=== PATIENT | male | born 1990 | race Caucasian/White ===

== ENCOUNTER → 2024-11-22 09:02 | Outpatient (REF) | payer OTHER, SELFPAY ==
[2024-11-22 14:01] LABS: Mumps Virus IgG Positive; Varicella Zoster IgG (VZV) Positive
[2024-11-22 15:45] LABS: Rubeola (Measles) IgG Positive
[2024-11-22 19:35] LABS: Rubella Negative
[2024-11-24 16:21] LABS: Quantiferon Mitogen minus NIL 9.95 IU/mL; Quantiferon NIL 0.05 IU/mL; Quantiferon Plus TB2 minus NIL 0.01 IU/mL (<=0.34); Quantiferon TB Gold Plus Negative (Negative)
== END ==
LOC: OHS 09:02
PROVIDERS: ATTENDING PHYSICIAN Nurse Practitioner Family
DX: Z23 Encounter for immunization (principal)
CPT/HCPCS: 36415; 86480; 86735; 86762; 86765; 86787

== ENCOUNTER 2024-12-31 09:05 | Emergency (ER) | payer SELFPAY ==
[2024-12-31] VITALS (8 sets, daily range): BP systolic 108–132; BP diastolic 75–96; PULSE 84–100; BMI 29.6
[2024-12-31 09:08] LABS: Glucose - Point of Care 116 mg/dl (70-99)
--- NOTE | 2024-12-31 09:39 | ED.GENMED ---
History of Present Illness
General
Chief Complaint: Dizziness
Time Seen by Provider: 12/31/24 09:23
History of Present Illness
History of Present Illness:
Patient is a 34-year-old male with past medical history of hypothyroidism and reported hydrocephalus (diagnosed as a child, not currently following with neurology), currently an employee at [employer], here today for evaluation of a
headache associated with dizziness and a near syncopal episode that occurred just prior to arrival. Patient states he woke up this morning with a mild headache described as a 3 out of 10 in severity. He noted no additional symptoms at that time.
While working approximately 1/2-hour prior to arrival he developed onset of dizziness/lightheadedness and felt the room was spinning and like he was going to pass out. He felt like he was going to fall onto the ground however he was able to catch
himself. He denies actually passing out or striking his head. No chest pain or difficulty breathing. No blurry vision. No numbness or tingling. No focal weakness. Rapid response was called and patient was ultimately transported to the
emergency department. Patient still endorses a mild headache described as a 3 out of 10 in severity. He still endorses mild dizziness. He does report feeling occasional shortness of breath intermittently over the past 1 week but denies feeling
this way currently. Shortness of breath lasted for several seconds and then resolves. He is currently not short of breath. No chest pain noted. He has previously felt dizzy but not this severe. He denies eating or drinking anything prior to
symptom onset this morning. He has noted a slight cough. No other acute complaints.
Review of Systems
Review of Systems
All Other Systems: ROS reviewed and negative except as documented in HPI and ROS
Phy Exam
Physical Exam
Physical Exam:
GENERAL: Alert , in no apparent distress
EYE: pupils equal and reactive
NECK: Supple
ENT: o/p clr, mmm.
CARDIAC: Regular rate and rhythm .
LUNGS: Clear breath sounds bilaterally, no acute respiratory distress, no wheezes/rales/rhonchi
ABDOMEN: Soft, without focal tenderness, no r/g, no cvat
NEUROLOGICAL: Alert and oriented, no focal neuro deficits, cranial nerves II through XII intact, normal sensation and motor, moving all extremities
SKIN: Warm and dry, skin intact.
MUSCULOSKELETAL: No edema, well perfused.
PSYCH: Normal and appropriate interaction.
Course
Orders/Labs/Results
Orders:
Orders
12/31/24 09:10
Electrocardiogram (*1) Urgent
Reason for Study: Chest Pain
EKG- Treatment ONCE
12/31/24 09:43
Electrocardiogram (*1) Urgent
Reason for Study: Vertigo / Dizzy
Cardiac Monitoring- Treatment ONCE
EKG- Treatment ONCE
Orthostatic VS- Treatment ONCE
12/31/24 09:44
CT Head & Neck Angio W/wo IV Urgent
Comment:
Reason For Exam: dizziness, headache
CR Chest - 2 Views Urgent
Comment:
Reason For Exam: lightheadedness
12/31/24 10:19
Complete Blood Count/With Diff Urgent
Comprehensive Metabolic Panel Urgent
Magnesium Urgent
Phosphorus Urgent
Troponin I Urgent
12/31/24 11:09
Urinalysis Reflex To Culture Urgent
Date Specimen was Collected: 12/31/24
Time Specimen was Collected: 11:08
Urine Microscopic Reflex Cult Urgent
Abnormal Lab Results
12/31/24 12/31/24 12/31/24
09:07 10:19 11:09
MCH 32.0 H pg
(27.0-31.0)
Abs Immat Gran (auto) 0.1 H 10^3/uL
(0-0.05)
Immature Gran % 0.8 H %
(0-0.5)
Glucose 108 H mg/dl
(70-99)
Urine Albumin (Reflex) 2+ A
(Neg - Trace)
POC Glucose 116 H mg/dl
(70-99)
12/31/24 10:19
12/31/24 10:19
Vital Signs
Initial and Last Documented VS:
Initial Vital Signs
Temp Pulse Resp BP Pulse Ox
98.1 F 95 20 130/96 96
12/31/24 09:07 12/31/24 09:07 12/31/24 09:07 12/31/24 09:07 12/31/24 09:07
Last Documented Vital Signs
Temp Pulse Resp BP Pulse Ox
98.1 F 76 11 130/92 97
12/31/24 09:07 12/31/24 13:00 12/31/24 13:00 12/31/24 13:00 12/31/24 13:00
MDM/Problems Addressed
Differential Diagnosis Includes:
Patient is a 34-year-old male with past medical history of hypothyroidism and reported hydrocephalus (diagnosed as a child, not currently following with neurology), currently an employee at [employer], here today for evaluation of a
headache associated with dizziness and a near syncopal episode that occurred just prior to arrival. Overall, patient appears very well. He is mildly hypertensive here. Physical examination described above. [id number] glucose normal. The
patient is neurologically intact without acute focal deficit appreciated. Will obtain a cardiac workup and further testing.
12/31/2024 13:21: Screening labs grossly within normal limits. Urinalysis negative for infection. There is a small amount of albumin which may be secondary to dehydration. CTA head/neck unchanged from prior. Chest x-ray/EKG negative. Patient
made aware. He feels improvement of symptoms overall. Orthostatic vital signs negative. We will perform a p.o. challenge and have the patient ambulate and reassess.
12/31/2024 13:45: P.o. challenge successful. Patient able to tolerate p.o. appropriately. A trial of ambulation was performed around the emergency department which was successful. Patient feels steady on his feet and at his baseline. He is
currently asymptomatic. Given patient's resolving symptoms and reassuring examination we will discharge at this time with recommendations to closely follow-up with his primary care provider. The patient is requesting a cough medication to help
with the cough. Will provide benzonatate. Return precautions given. Patient voices understanding. All questions answered. Stable for discharge.
*Pulse Oximetry
SaO2: 96
Oxygen Mode of Delivery: Room air
Patient hypoxic: no
*Critical Care Note
Total Time (30-74mins, 75-104mins- exclusive of procedures): Not Applicable
ED Attending Note
-
Portions of this chart may have been created with voice recognition software.� Occasional wrong word or��sound alike� substitutions may have occurred due to the inherent limitations of voice recognition software.
Discharge Plan
Departure
Patient Disposition: Home (Routine Discharge)
Date of Disposition: 12/31/24
Time of Disposition: 13:46
Patient with high blood pressure during this ER visit?: Yes
Condition: Good
Discharge Problem:
Dizziness
Prescriptions:
New
benzonatate 200 mg capsule
200 mg PO TID PRN (Reason: Cough) 5 Days Qty: 15 0RF
Referrals:
Khoa Barbour MD [Active, Neurology] - Follow up in 1 week
NONE,* [Family Provider, Internal Medicine]
Activity Restrictions/Additional Instructions:
Your workup today is largely unremarkable/consistent with your baseline.
We discussed following up with neurology for the abnormal CAT scan findings.
1. Dilation of the lateral and third ventricles, unchanged compared to prior CT dated 11/02/2022. 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
2. Mild cerebellar atrophy, unchanged compared to prior study.
We also recommend following up with your primary care provider for reevaluation within the next 5 to 7 days.
Return for any new, worsening, or concerning symptoms.
Interventions
Interventions:
*Risk Screen - Suicide Last Done: 12/31/24 09:07
*General Assessment Last Done: 12/31/24 10:14
*Neglect/Abuse Screening Last Done: 12/31/24 10:15
*ED- Fall Risk Assessment Last Done: 12/31/24 10:14
*ED COVID-19 Vaccine History Last Done: 12/31/24 10:14
ED- Neurological Assessment Last Done: 12/31/24 10:20
ED- Cardiac Assessment Last Done: 12/31/24 10:20
ED Swallowing Screen Last Done: 12/31/24 11:16
Discharge Date and Time
Print Language: HEBREW
[2024-12-31 10:35] LABS: Hematocrit 43.8 % (39.0-52.0); Hemoglobin 15.9 g/dL (13.0-18.0); Mean Corp Hgb Conc. 36.3 g/dL (33.0-37.0); Mean Corpuscular Volume 88.1 fL (80.0-94.0); Nucleated Red Blood Cells % 0 % (-); Platelet Count 203 10^3/uL (130-400); Red Cell Dist. Width 12.5 % (11.5-14.5)
--- NOTE | 2024-12-31 10:52 | EDRN ---
Pt snoring and sleeping at this time. Lights down, no complaints. VSS. Pain is now a 2/10 for his head and dizziness is only slight now.
[2024-12-31 10:59] LABS: ALT (SGPT) 24 U/L (0-50); AST (SGOT) 23 U/L (17-59); Albumin 4.2 g/dl (3.5-5.0); Alkaline Phosphatase 55 U/L (38-126); Blood Urea Nitrogen 12 mg/dl (9-20); Calcium 9.1 mg/dl (8.4-10.2); Carbon Dioxide 25 mmol/L (22-30); Chloride 105 mmol/L (98-107); Glucose 108 mg/dl (70-99); Magnesium 2.2 mg/dl (1.6-2.3); Potassium 4.3 mmol/L (3.5-5.1); Sodium 137 mmol/L (135-145); Total Protein 7.0 g/dl (6.3-8.2); eGFR > 60.00
--- NOTE | 2024-12-31 11:01 | EDRN ---
Pt attempting urine in BR at this time.
[2024-12-31 11:11] LABS: Troponin I < 0.012 ng/ml
[2024-12-31 11:43] LABS: Urine Character Clear (Clear)
[2024-12-31 12:20] LABS: Urine Squamous Cell 0-2 /LPF (Few)
[2024-12-31 12:21] LABS: Urine Urothelial Cell 0-2 /LPF (FEW)
[2024-12-31 12:22] LABS: Urine Red Blood Cell 0-2 /HPF (0-2); Urine White Cell 0-2 /HPF (0-5)
--- NOTE | 2024-12-31 13:45 | EDRN ---
Zaira Willard PA in to see ptSusan
== END 2024-12-31 14:19 | disposition home or self-care (01) ==
LOC: EMR 09:05
PROVIDERS: Physician Assistant; EMERGENCY PHYSICIAN Emergency Medicine
DX: R42 Dizziness and giddiness (principal); R03.0 Elevated blood-pressure reading, without diagnosis of hypertension; E03.9 Hypothyroidism, unspecified
CPT/HCPCS: 99285; 70496; 70498; 71046; 80053; 81003; 81015; 82962; 83735; 84100; 84484; 85025; 93005; Q9967

== ENCOUNTER 2025-01-06 13:36 | Emergency (ER) | payer BC, SELFPAY ==
[2025-01-06 13:48] VITALS: BP 123/92
[2025-01-06 14:08] LABS: Hematocrit 46.1 % (39.0-52.0); Hemoglobin 16.9 g/dL (13.0-18.0); Mean Corp Hgb Conc. 36.7 g/dL (33.0-37.0); Mean Corpuscular Volume 87.8 fL (80.0-94.0); Nucleated Red Blood Cells % 0 % (-); Platelet Count 247 10^3/uL (130-400); Red Cell Dist. Width 12.5 % (11.5-14.5)
[2025-01-06 14:25] LABS: Blood Urea Nitrogen 18 mg/dl (9-20); Calcium 8.9 mg/dl (8.4-10.2); Carbon Dioxide 27 mmol/L (22-30); Chloride 101 mmol/L (98-107); Glucose 98 mg/dl (70-99); Sodium 137 mmol/L (135-145); eGFR > 60.00
--- NOTE | 2025-01-06 14:42 | ED.GENMED ---
History of Present Illness
General
Chief Complaint: Dizziness
Source: patient
Time Seen by Provider: 01/06/25 14:24
History of Present Illness
History of Present Illness:
This patient is a 34-year-old male who states that he was at work today, standing, and he turned his head and started to feel dizzy. He raises his index finger in the ear and moves around in a circular pattern to describe what the dizziness felt
like, also noted as 'spinning'. He thought he was going to fall and needed to brace himself. He denies syncope, injury, or falling down. He now states that he still feels a little dizzy with a mild headache. Patient had the very similar episode
on Friday, was seen in the emergency department had extensive workup including CTA, chest x-ray, labs, etc. This was all reviewed by me. Patient does report occasional recent nonproductive cough. He denies tinnitus, diplopia, dysarthria chest
pain, shortness of breath, neck pain, numbness, tingling, focal weakness, recent URI, fevers, chills, recent trauma, or other complaints.
Past History
Past History
ED Past Medical History: Hypothyroidism and Other (Hydrocephalus)
Social History
Tobacco: Non-smoker
Alcohol: None
Drug: None
Personal: Single
Living: with family
Employment: Employed
Phy Exam
Physical Exam
Physical Exam:
GENERAL: Alert , in no apparent distress
EYE: pupils equal and reactive, EOMI, no nystagmus, no photophobia
NECK: Supple, no significant adenopathy.
ENT: o/p clr, mmm. There is a mild to moderate amount of cerumen in the bilateral external auditory canals
CARDIAC: Regular rate and rhythm .
LUNGS: Clear breath sounds bilaterally, no acute respiratory distress, no wheezes/rales/rhonchi
ABDOMEN: Soft, without focal tenderness, no r/g, no cvat
NEUROLOGICAL: Alert and oriented, no focal neuro deficits, normal gait, [id number] normal, motor 5 out of 5, sensory intact, cranial nerves II through XII intact
SKIN: Warm and dry, skin intact.
MUSCULOSKELETAL: No edema, well perfused.
PSYCH: Normal and appropriate interaction.
Course
Orders/Labs/Results
Orders:
Orders
01/06/25 13:38
Electrocardiogram (*1) Urgent
Reason for Study: Syncope
01/06/25 13:39
EKG- Treatment ONCE
01/06/25 14:02
Basic Metabolic Panel Urgent
Complete Blood Count/With Diff Urgent
Abnormal Lab Results
01/06/25
14:02
MCH 32.2 H pg
(27.0-31.0)
Absolute Monos (auto) 0.7 H 10^3/uL
(0.1-0.6)
01/06/25 14:02
01/06/25 14:02
Vital Signs
Initial and Last Documented VS:
Initial Vital Signs
Temp Pulse Resp BP Pulse Ox
98 F 107 16 123/92 98
01/06/25 13:48 01/06/25 13:48 01/06/25 13:48 01/06/25 13:48 01/06/25 13:48
Last Documented Vital Signs
Temp Pulse Resp BP Pulse Ox
98 F 107 16 123/92 98
01/06/25 13:48 01/06/25 13:48 01/06/25 13:48 01/06/25 13:48 01/06/25 14:50
*Pulse Oximetry
SaO2: 98
Oxygen Mode of Delivery: Room air
Update Note
Update Note:
Patient presents to the Emergency Department with ____dizziness
Number and Complexity of Problems Addressed at the Encounter
� Chronic conditions affecting care:
� Acute Exacerbation and/or Progression of Chronic Illness:
� Differential Diagnosis includes: But not limited to BPPV, vertigo related to cerumen impaction, TIA, arrhythmia, etc. etc.
Amount and/or Complexity of Data to be Reviewed and Analyzed
� I performed an independent evaluation of and my interpretation is:
EKG: Read by me, normal sinus rhythm, normal rate, normal axis, no acute ischemia
CT:
Xrays:
Laboratory Studies: Generally unremarkable
Other:
� Review of other/old records reveals:
� Clinical information was obtained by an independent historian:
� Prescriptions/Medications Considered but not given:
� Further testing considered but not performed:
Risk of Complications and/or Morbidity or Mortality of Patient Management
� Social determinants of health affecting care:
� Discussion with other providers (PCP, Hospitalists, Consultants, etc):
� Escalation of care including admission/observation vs risk of discharge considered:Review of CT from 2022 notes mild to moderate hydrocephalus with recommendation for neurology consult. In reading patient's records, he was
referred to neurosurgery as an outpatient. The CAT scan from just a few days ago is unchanged. I highly doubt that this finding is related to patient's symptoms today. Patient is neurologically intact here. I suspect his symptoms are most
consistent with vertigo particularly as he describes it as a spinning sensation. Will prescribe Antivert, Debrox drops for his cerumen, and recommend close follow-up.
ED Attending Note
-
Portions of this chart may have been created with voice recognition software.� Occasional wrong word or��sound alike� substitutions may have occurred due to the inherent limitations of voice recognition software.
Discharge Plan
Departure
Patient Disposition: Home (Routine Discharge)
Date of Disposition: 01/06/25
Time of Disposition: 14:55
Patient with high blood pressure during this ER visit?: Yes
Condition: Good
Discharge Problem:
Vertigo
Instructions: Vertigo (a Type of Dizziness) (DC), BLOOD PRESSURE
Prescriptions:
New
meclizine 25 mg tablet
25 mg PO BID PRN (Reason: dizziness) Qty: 13 0RF
Debrox 6.5 % drops
5 drp otic (ear) DAILY 4 Days Qty: 15 0RF
No Action
benzonatate 200 mg capsule
200 mg PO TID PRN (Reason: Cough) 5 Days Qty: 15 0RF
Referrals:
Cuauhtemoc Stoll DO, Resident [Family Provider, General] - Follow up in 2-3 days
Activity Restrictions/Additional Instructions:
IF YOU DEVELOP NUMBNESS, TINGLING, DOUBLE VISION, SEVERE HEADACHE, SEVERE NECK PAIN, FEVER, WEAKNESS, DIFFICULTY WALKING, INCREASING OR NEW DIZZINESS, CHEST PAIN, PALPITATIONS, OR OTHER WORRISOME SIGNS, PLEASE RETURN TO THE ER IMMEDIATELY!
Interventions
Interventions:
*Risk Screen - Suicide Last Done: 01/06/25 13:48
*Neglect/Abuse Screening Last Done: 01/06/25 13:48
Discharge Date and Time
Print Language: DANISH
== END 2025-01-06 15:38 | disposition home or self-care (01) ==
LOC: EMR 13:36
PROVIDERS: EMERGENCY PHYSICIAN Emergency Medicine
DX: R42 Dizziness and giddiness (principal); E03.9 Hypothyroidism, unspecified; G91.9 Hydrocephalus, unspecified
CPT/HCPCS: 99283; 80048; 85025; 93005

== ENCOUNTER 2025-01-19 08:43 | Emergency (ER) | payer BC, SELFPAY ==
[2025-01-19] VITALS (11 sets, daily range): BP systolic 98–153; BP diastolic 84–118; BMI 29.1
--- NOTE | 2025-01-19 08:56 | ED.GENMED ---
History of Present Illness
<ESPERANZA Singh - Last Filed: 01/19/25 17:35>
General
Chief Complaint: Fainting/Passed Out
Source: patient
Exam Limitations: none
Time Seen by Provider: 01/19/25 08:49
Nursing documentation reviewed up to this point in time: agreed with
History of Present Illness
History of Present Illness:
Patient is a 34-year-old male who has a past medical history of hydrocephalus presents to the ER for evaluation.
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 rapid response was called. Patient presented to room 33 awake and alert. He
feels slightly anxious now but denies any other symptoms. He denies any dizziness presently. He was seen here in the ER January 06 for dizziness and was diagnosed with vertigo.
Patient does report for the past several weeks every time he drinks or eats he intermittently coughs.
Pt has been seen here 12/31 and 01/06 for dizziness. Patient had head and neck CTA which does report unchanged dilatation of the lateral and third ventricles(comparison from October 2022).
Patient does reports thathe has had hydrocephalus ' my whole life.' He did see neurology at [facility] couple years ago they were planning on doing a shunt and then decided not to.
Past History
<ESPERANZA Singh - Last Filed: 01/19/25 17:35>
Past History
ED Past Medical History: Hypothyroidism and Other (Hydrocephalus)
Social History
Tobacco: Non-smoker
Alcohol: None
Drug: None
Personal: Single
Living: with family
Employment: Employed
Phy Exam
<ESPERANZA Singh - Last Filed: 01/19/25 17:35>
General Physical Exam
General Presentation: no apparent distress
General age: appears stated age
General Skin: warm and dry
General Habitus: normal
General Mental: alert
General Hydration: appears well hydrated
ENT Exam
ENT Exam: EOMI, TM's normal and neck supple
Eye Exam
Eye Exam: PERRL, EOMI and other (No papilledema)
Eye Exam General: PERRL: bilateral and EOM intact: bilateral
Pupil Exam: Bilateral: round and reactive
Cardiovascular Exam
Cardiovascular Exam: tachycardia
Pulmonary Exam
Pulmonary Exam: lungs clear and no respiratory distress
Neurological Exam
Neurological Exam: alert, oriented x3, no motor deficits and no sensory deficits
Summit Coma Scale
Eye Opening: Spontaneous
Verbal Response: Oriented
Motor Response: Obeys Commands
GCS Total Score: 15
Cerebellar
Cerebellar Function: normal finger to nose
Musculoskeletal Exam
Musculoskeletal Exam: full ROM
Skin Exam
Skin Exam: normal color and warm/dry
Psychiatric Exam
Psychiatric Exam: normal mood/affect
<Tiffany Rivers PA-C - Last Filed: 01/19/25 23:33>
Summit Coma Scale
GCS Total Score: 15
Course
<ESPERANZA Singh - Last Filed: 01/19/25 17:35>
Orders/Labs/Results
Orders:
Orders
01/19/25 08:47
Electrocardiogram (*1) Urgent
Reason for Study: Syncope
01/19/25 08:48
EKG- Treatment ONCE
01/19/25 09:10
IV Insert/Care/Rem.- Treatment PRN
01/19/25 09:11
Cardiac Monitoring- Treatment ONCE
0.9% Sodium Chloride 1000 ml [Nss] 1,000 ml IV BOLUS
Speech Therapy Eval & Treat Urgent
01/19/25 09:14
CBC/No Diff [Complete Blood Count/No Diff] Urgent
Comprehensive Metabolic Panel Urgent
TSH Urgent
01/19/25 Lunch
NPO
Reason for opting out of Tactical Debriefer Officer order writing: Provider Decision
Allow oral meds: No
Allow clear liquids: No
01/19/25 10:33
DDimer [D-Dimer] Urgent
01/19/25 12:55
CT Head W/o Iv Contrast Urgent
Comment:
Reason For Exam: dizziness hx of hydrocephalus
01/19/25 16:48
MRI Brain [MR Brain Without Contrast] Urgent
Comment:
Reason For Exam: dizziness diff swallowing hx of chronic hydrocepha
OK for patient to be off Cardiac Monitoring for MRI: Yes
Recent pill cam endoscopy?: No
01/19/25 17:34
Lorazepam [Ativan] 1 mg IV Q4HPRN PRN
Abnormal Lab Results
01/19/25 01/19/25
08:56 09:14
WBC 12.1 H 10^3/uL
(4.8-10.8)
MCH 31.7 H pg
(27.0-31.0)
Glucose 107 H mg/dl
(70-99)
Total Bilirubin 1.6 H mg/dl
(0.2-1.3)
POC Glucose 121 H mg/dl
(70-99)
01/19/25 09:14
01/19/25 09:14
Vital Signs
Initial and Last Documented VS:
Initial Vital Signs
Pulse Resp Pulse Ox
117 14 97
01/19/25 08:46 01/19/25 08:46 01/19/25 08:46
Last Documented Vital Signs
Temp Pulse Resp BP Pulse Ox
98.1 F 98 18 123/85 100
01/19/25 08:48 01/19/25 21:08 01/19/25 21:08 01/19/25 21:03 01/19/25 21:08
<Jamie Dotson, DO - Last Filed: 01/19/25 14:46>
Orders/Labs/Results
Orders:
Orders
01/19/25 08:47
Electrocardiogram (*1) Urgent
Reason for Study: Syncope
01/19/25 08:48
EKG- Treatment ONCE
01/19/25 09:10
IV Insert/Care/Rem.- Treatment PRN
01/19/25 09:11
Cardiac Monitoring- Treatment ONCE
0.9% Sodium Chloride 1000 ml [Nss] 1,000 ml IV BOLUS
Speech Therapy Eval & Treat Urgent
01/19/25 09:14
CBC/No Diff [Complete Blood Count/No Diff] Urgent
Comprehensive Metabolic Panel Urgent
TSH Urgent
01/19/25 Lunch
NPO
Reason for opting out of Tactical Debriefer Officer order writing: Provider Decision
Allow oral meds: No
Allow clear liquids: No
01/19/25 10:33
DDimer [D-Dimer] Urgent
01/19/25 12:55
CT Head W/o Iv Contrast Urgent
Comment:
Reason For Exam: dizziness hx of hydrocephalus
01/19/25 16:48
MRI Brain [MR Brain Without Contrast] Urgent
Comment:
Reason For Exam: dizziness diff swallowing hx of chronic hydrocepha
OK for patient to be off Cardiac Monitoring for MRI: Yes
Recent pill cam endoscopy?: No
01/19/25 17:34
Lorazepam [Ativan] 1 mg IV Q4HPRN PRN
Abnormal Lab Results
01/19/25 01/19/25
08:56 09:14
WBC 12.1 H 10^3/uL
(4.8-10.8)
MCH 31.7 H pg
(27.0-31.0)
Glucose 107 H mg/dl
(70-99)
Total Bilirubin 1.6 H mg/dl
(0.2-1.3)
POC Glucose 121 H mg/dl
(70-99)
01/19/25 09:14
01/19/25 09:14
Vital Signs
Initial and Last Documented VS:
Initial Vital Signs
Pulse Resp Pulse Ox
117 14 97
01/19/25 08:46 01/19/25 08:46 01/19/25 08:46
Last Documented Vital Signs
Temp Pulse Resp BP Pulse Ox
98.1 F 98 18 123/85 100
01/19/25 08:48 01/19/25 21:08 01/19/25 21:08 01/19/25 21:03 01/19/25 21:08
<Tiffany Rivers PA-C - Last Filed: 01/19/25 23:33>
Orders/Labs/Results
Orders:
Orders
01/19/25 08:47
Electrocardiogram (*1) Urgent
Reason for Study: Syncope
01/19/25 08:48
EKG- Treatment ONCE
01/19/25 09:10
IV Insert/Care/Rem.- Treatment PRN
01/19/25 09:11
Cardiac Monitoring- Treatment ONCE
0.9% Sodium Chloride 1000 ml [Nss] 1,000 ml IV BOLUS
Speech Therapy Eval & Treat Urgent
01/19/25 09:14
CBC/No Diff [Complete Blood Count/No Diff] Urgent
Comprehensive Metabolic Panel Urgent
TSH Urgent
01/19/25 Lunch
NPO
Reason for opting out of Tactical Debriefer Officer order writing: Provider Decision
Allow oral meds: No
Allow clear liquids: No
01/19/25 10:33
DDimer [D-Dimer] Urgent
01/19/25 12:55
CT Head W/o Iv Contrast Urgent
Comment:
Reason For Exam: dizziness hx of hydrocephalus
01/19/25 16:48
MRI Brain [MR Brain Without Contrast] Urgent
Comment:
Reason For Exam: dizziness diff swallowing hx of chronic hydrocepha
OK for patient to be off Cardiac Monitoring for MRI: Yes
Recent pill cam endoscopy?: No
01/19/25 17:34
Lorazepam [Ativan] 1 mg IV Q4HPRN PRN
Abnormal Lab Results
01/19/25 01/19/25
08:56 09:14
WBC 12.1 H 10^3/uL
(4.8-10.8)
MCH 31.7 H pg
(27.0-31.0)
Glucose 107 H mg/dl
(70-99)
Total Bilirubin 1.6 H mg/dl
(0.2-1.3)
POC Glucose 121 H mg/dl
(70-99)
01/19/25 09:14
01/19/25 09:14
Vital Signs
Initial and Last Documented VS:
Initial Vital Signs
Pulse Resp Pulse Ox
117 14 97
01/19/25 08:46 01/19/25 08:46 01/19/25 08:46
Last Documented Vital Signs
Temp Pulse Resp BP Pulse Ox
98.1 F 98 18 123/85 100
01/19/25 08:48 01/19/25 21:08 01/19/25 21:08 01/19/25 21:03 01/19/25 21:08
<ESPERANZA Singh - Last Filed: 01/19/25 17:35>
MDM/Problems Addressed
Differential Diagnosis Includes:
Elevated ICP, hydrocephalus, vertigo, dehydration
MDM/Problems Addressed:
34-year-old male with chronic longstanding hydrocephalus presents to the ER for evaluation of dizziness. 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
over. In addition, he has had cough when he eats or drinks. Patient presents awake alert mildly tachycardic however in no acute distress normal neurologic exam here in the ER.
CAT scan was done here today which shows: Suggesting findings suggestive of Chiari malformation and dilation of the lateral and third ventricles. Patient was seen by [facility] in the past, Dr. Ruiz.
I did speak with neurosurgery on-call Dr. Andra English . She did review previous MRI in 2022 and at that time it was felt the patient had compensated hydrocephalus he had no papilledema. Patient had an MRI from October 2024 and she did review this as
well which showed stable hydrocephalus and no increase. She was able to compare that MRI in October 2024 with today's CAT scan and findings unchanged.
She does recommending checking for papilledema. Case reviewed with ED physician who evaluated patient at bedside panoptic ophthalmoscope was used and no evidence of papilledema. Patient now states that he is also followed by [facility] Dr. Mccallum
[place] .
Patient's labs reviewed white count very minimally elevated however no recent viral syndrome/infectious symptoms D-dimer was checked with tachycardia and negative patient's renal function is normal
Pt was seen by Speech : As per tiger text : coughing w/ thin liquids via consecutive sips and c/o 10/10 headache that resolved w/ time. No s/s w/ single sips. Reporting coughing w/ solids and liquids for 2 weeks prior to admission. Recommend
Regular, Thin liquid diet with single sips and video swallow to objectively assess.
I spoke with Dr. Sarmiento and she does recommend with patient's complaint of dizziness and coughing with swallowing to check an MRI to rule out brainstem stroke. If negative plan to discharge home with outpatient follow-up with neurology. Will also
have patient follow-up for video swallow study. He is however able to swallow and tolerate secretions well and is in no acute distress.
1730: Care of patient at this time transferred to [facility].
Chronic conditions affecting care:
Hydrocephalus
<Tiffany Rivers PA-C - Last Filed: 01/19/25 23:33>
*Pulse Oximetry
Patient hypoxic: no (97%)
*Critical Care Note
Total Time (30-74mins, 75-104mins- exclusive of procedures): Not Applicable
<Tiffany Rivers PA-C - Last Filed: 01/19/25 23:33>
Update Note
Update Note:
I received care of patient awaiting MRI results. MRI brain negative for acute findings. Specifically, there is no evidence of stroke. Ventriculomegaly is stable from prior imaging. There is findings consistent of Chiari malformation which
patient was previously aware of. Patient stable for discharge with plan for outpatient follow-up with his neurologist.
ED Attending Note
<ESPERANZA Singh - Last Filed: 01/19/25 17:35>
-
Portions of this chart may have been created with voice recognition software.� Occasional wrong word or��sound alike� substitutions may have occurred due to the inherent limitations of voice recognition software.
<Jamie Dotson DO - Last Filed: 01/19/25 14:46>
ED Attending Note
Patient seen and examined by attending physician: Yes
I performed the substantive portion of visit, reviewed & personally made and approve the management plan that is documented in note by myself or ROXANNE.: Yes
Discharge Plan
Departure
Patient Disposition: Home (Routine Discharge)
Date of Disposition: 01/19/25
Time of Disposition: 20:40
Patient with high blood pressure during this ER visit?: Yes
Discharge Problem:
Dizziness
Instructions: Dizziness in adults - ED discharge instructions
Prescriptions:
No Action
benzonatate 200 mg capsule
200 mg PO TID PRN (Reason: Cough) 5 Days Qty: 15 0RF
meclizine 25 mg tablet
25 mg PO BID PRN (Reason: dizziness) Qty: 13 0RF
Debrox 6.5 % drops
5 drp otic (ear) DAILY 4 Days Qty: 15 0RF
Referrals:
UNKNOWN - PT NOT,INTERVIEWE [Family Provider]
Alessio Sarmiento MD [Non-Admitting Privileges, Neurology]
Activity Restrictions/Additional Instructions:
Today please follow-up with your neurologist. call tomorrow to make an appointment soon as possible.
In addition it is recommended that you follow-up with your family doctor to follow-up on getting a video swallow study to objectively assess your coughing.
Interventions
Interventions:
*Risk Screen - Suicide Last Done: 01/19/25 08:48
*General Assessment Last Done: 01/19/25 08:48
*Neglect/Abuse Screening Last Done: 01/19/25 08:48
*ED- Fall Risk Assessment Last Done: 01/19/25 08:48
*ED COVID-19 Vaccine History Last Done: 01/19/25 08:48
ED- Cardiac Assessment Last Done: 01/19/25 08:48
ED- Neurological Assessment Last Done: 01/19/25 09:02
*Nursing Disposition Last Done: 01/19/25 21:12
Discharge Date and Time
Discharge Date/Time: 01/19/25 21:13
Print Language: ESTONIAN
[2025-01-19 08:58] LABS: Glucose - Point of Care 121 mg/dl (70-99)
[2025-01-19] MEDS: NSS 1000 IV (09:15)
[2025-01-19 09:26] LABS: Hematocrit 46.5 % (39.0-52.0); Hemoglobin 16.7 g/dL (13.0-18.0); Mean Corp Hgb Conc. 35.9 g/dL (33.0-37.0); Mean Corpuscular Volume 88.2 fL (80.0-94.0); Platelet Count 231 10^3/uL (130-400); Red Cell Dist. Width 12.2 % (11.5-14.5)
[2025-01-19 09:40] LABS: ALT (SGPT) 18 U/L (0-50); AST (SGOT) 23 U/L (17-59); Albumin 4.7 g/dl (3.5-5.0); Alkaline Phosphatase 60 U/L (38-126); Blood Urea Nitrogen 16 mg/dl (9-20); Calcium 9.5 mg/dl (8.4-10.2); Carbon Dioxide 27 mmol/L (22-30); Chloride 101 mmol/L (98-107); Estimated Creatinine Clearance 92 ml/min; Glucose 107 mg/dl (70-99); Potassium 4.7 mmol/L (3.5-5.1); Sodium 139 mmol/L (135-145); Total Protein 7.9 g/dl (6.3-8.2); eGFR > 60.00
[2025-01-19 10:12] LABS: TSH 1.18 uIU/ml (0.47-4.68)
[2025-01-19 10:56] LABS: D-Dimer < 0.27 ug/mlFEU (0.00-0.50)
--- NOTE | 2025-01-19 11:01 | PTOTSP ---
Dysphagia Evaluation
Patient reported acute onset of dysphagia/aspiration with liquids > solids 2 weeks ago of unknown etiology. Episode of dysphagia today (i.e., coughing when drinking water via consecutive sips) led to syncopal episode and 03/25 headache. Etiology
of dysphagia is unknown.
Recommend:
1. Regular, Thin Liquids via single cup sips
2. Medications whole in puree
3. Video swallow study to objectively assess swallowing function and further develop plan of care
== END 2025-01-19 21:13 | disposition home or self-care (01) ==
LOC: EMR 08:43
PROVIDERS: Nurse Practitioner; EMERGENCY PHYSICIAN Emergency Medicine
DX: R42 Dizziness and giddiness (principal); E03.9 Hypothyroidism, unspecified; G91.9 Hydrocephalus, unspecified
CPT/HCPCS: 96360; 99284; 70450; 70551; 80053; 82962; 84443; 85027; 85379; 93005

== ENCOUNTER → 2025-01-20 11:52 | Outpatient (REF) | payer BC, SELFPAY ==
[2025-01-20 12:43] LABS: Urine Character Clear (Clear)
[2025-01-20 13:02] LABS: Glycohemoglobin (HgbA1c) 5.2 % (4.0-5.6)
[2025-01-20 13:18] LABS: Free T3 6.16 pg/ml (2.77-5.27)
[2025-01-20 13:27] LABS: HDL Cholesterol 38 mg/dl; LDL Cholesterol, Calculated 84 mg/dl; Very Low Density Lipoprotein 27 mg/dl (0-30)
[2025-01-20 13:31] LABS: TSH 1.17 uIU/ml (0.47-4.68)
[2025-01-20 13:35] LABS: Urine Red Blood Cell 0-2 /HPF (0-2); Urine White Cell 0-2 /HPF (0-5)
== END ==
LOC: REG 11:52
PROVIDERS: ATTENDING PHYSICIAN Student in an Organized Health Care Education/Training Program
DX: R42 Dizziness and giddiness (principal); G91.9 Hydrocephalus, unspecified; E03.9 Hypothyroidism, unspecified; R00.0 Tachycardia, unspecified; R80.9 Proteinuria, unspecified; E66.3 Overweight
CPT/HCPCS: 36415; 80061; 81003; 81015; 83036; 84439; 84443; 84481

== ENCOUNTER 2025-01-28 07:19 | Emergency (ER) | payer BC, SELFPAY ==
[2025-01-28 07:22] VITALS: BP 150/93
[2025-01-28 07:25] VITALS: BMI 27.9
[2025-01-28 07:30] VITALS: BP 150/93
[2025-01-28 08:08] VITALS: BP 129/104
[2025-01-28 08:24] VITALS: BP 126/90
--- NOTE | 2025-01-28 08:28 | ED.GENMED ---
History of Present Illness
General
Chief Complaint: Dizziness
Source: patient
Time Seen by Provider: 01/28/25 07:44
History of Present Illness
History of Present Illness:
34-year-old male with past medical history of hydrocephalus and hypothyroidism presenting back to the emergency department for reevaluation for continued intermittent headache and lightheadedness/dizziness for which she has been seen a few times
already in the ER this month, patient having a hard time describing the symptoms stating that he will sometimes get a pain within his head that causes him to freeze up which will also cause him to feel intermittently lightheaded/dizzy. Patient not
able to discern whether the symptoms seems to be more vertiginous versus lightheaded but notes at present time he is asymptomatic. Patient does follow with neurology as well as endocrinology for which he states he was started on a medication for
migraine prevention (does not remember which medication) as well as thyroid medication by his supervisor cellars. He reports that when he saw his primary care provider at the [facility] center he was told his thyroid levels were 'abnormal'. He is
denying any fevers or infectious symptoms and states overall his symptoms over the last month are unchanged today. Based off of record review patient has had plain head CT, CTA of the head and neck, MRI of the brain with no acute abnormal findings.
MRI did note low-lying cerebellar tonsils.
Past History
Past History
ED Past Medical History: Hypothyroidism and Other (Hydrocephalus)
ED Past Surgical History: Appendectomy
Social History
Tobacco: Non-smoker
Alcohol: None
Drug: None
Personal: Single
Living: with family
Employment: Employed
Review of Systems
Review of Systems
All Other Systems: ROS reviewed and negative except as documented in HPI and ROS
Phy Exam
Physical Exam
Physical Exam:
GENERAL: Alert , in no apparent distress
HEAD: NCAT
EYE: pupils equal and reactive, EOMI, no nystagmus
NECK: Supple, no meningismus
ENT: o/p clr, mmm.
CARDIAC: Regular rate and rhythm .
LUNGS: Clear breath sounds bilaterally, no acute respiratory distress, no wheezes/rales/rhonchi
ABDOMEN: Soft, without focal tenderness, no r/g, no cvat
NEUROLOGICAL: Alert and oriented, no focal neuro deficits, Ambulatory with steady gait, no ataxia
SKIN: Warm and dry, skin intact.
MUSCULOSKELETAL: well perfused.
PSYCH: Normal and appropriate interaction.
Scores
Heart Failure Risk
Heart Failure Risk Score: Not Applicable
Heart Score for Chest Pain Patients
STEMI patient?: Not applicable
Withdrawal Assessment of Alcohol
Withdrawal Assessment Completed?: Not applicable
Course
Orders/Labs/Results
Orders:
Orders
01/28/25 08:05
Electrocardiogram (*1) Urgent
Reason for Study: Vertigo / Dizzy
EKG- Treatment ONCE
01/28/25 08:22
Lyme Progressive Urgent
Vital Signs
Initial and Last Documented VS:
Initial Vital Signs
Pulse Resp BP Pulse Ox
97 22 150/93 96
01/28/25 07:22 01/28/25 07:22 01/28/25 07:22 01/28/25 07:22
Last Documented Vital Signs
Temp Pulse Resp BP Pulse Ox
98.6 F 94 14 126/90 95
01/28/25 08:24 01/28/25 08:30 01/28/25 08:30 01/28/25 08:24 01/28/25 08:30
Tray Casting Machine Operator consulted with Physician
Tray Casting Machine Operator consulted with physician?: Yes
Name of Physician Consulted: [facility]
MDM/Problems Addressed
Differential Diagnosis Includes:
BPPV
Labyrinthitis
Vestibular neuritis
Tension headache
Migraine headache
Cluster headache
Meningitis considered but given duration of illness thought to be much less likely
No concern for mass or malignancy given patient had normal MRI within the last month
No concern for acute stroke given normal MRI within the last month
Infectious etiology such as Lyme considered
MDM/Problems Addressed:
34-year-old male presenting to the ER for reevaluation of continued intermittent headache and lightheadedness. Patient has had extensive through the ER as well as outpatient with no specific etiology found. Patient notes that he does not have any
changes in his symptoms today but frustrated with the ongoing continued nature of the symptoms. Records were reviewed which show relatively unremarkable labs, last time patient was here he did have a slight leukocytosis but otherwise unremarkable
labs. Today no signs of infection. He is also had significant urinary imaging pleated without any abnormal findings. Overall my suspicion for any emergent pathology is very minimal. Will check a Lyme titer as well as repeat EKG. Discussed with
patient need for continued outpatient follow-up. He has a scheduled appointment with physical therapy next week for vestibular treatment. Discussed return precautions to the ER
*Pulse Oximetry
SaO2: 96
Oxygen Mode of Delivery: Room air
Patient hypoxic: no
*EKG
Heart Rate: 102
Rate: tachycardiac
Rhythm: sinus
[place]: normal axis
Ischemia: no ischemia
*Critical Care Note
Total Time (30-74mins, 75-104mins- exclusive of procedures): Not Applicable
Data Reviewed
Review of Other/Old Records Reveals: Labs and Radiology Studies
ED Attending Note
-
Portions of this chart may have been created with voice recognition software.� Occasional wrong word or��sound alike� substitutions may have occurred due to the inherent limitations of voice recognition software.
Discharge Plan
Departure
Patient Disposition: Home (Routine Discharge)
Date of Disposition: 01/28/25
Time of Disposition: 08:28
Patient with high blood pressure during this ER visit?: Yes
Discharge Problem:
Headache, Dizziness
Instructions: Headache in adults - ED discharge instructions
Prescriptions:
No Action
meclizine 25 mg tablet
25 mg PO BID PRN (Reason: dizziness) Qty: 13 0RF
Stand Alone Forms: Return to Work
Interventions
Interventions:
*Risk Screen - Suicide Last Done: 01/28/25 07:22
*General Assessment Last Done: 01/28/25 07:26
*Neglect/Abuse Screening Last Done: 01/28/25 07:22
*ED- Fall Risk Assessment Last Done: 01/28/25 07:22
*ED COVID-19 Vaccine History Last Done: 01/28/25 07:22
*Nursing Disposition Last Done: 01/28/25 08:42
ED- Neurological Assessment Last Done: 01/28/25 07:25
ED- Cardiac Assessment Last Done: 01/28/25 07:26
Discharge Date and Time
Discharge Date/Time: 01/28/25 08:45
Print Language: MEXICAN
[2025-01-31 13:13] LABS: Lyme Antibody Screen, EIA Negative (Negative)
== END 2025-01-28 08:45 | disposition home or self-care (01) ==
LOC: EMR 07:19
PROVIDERS: Physician Assistant Medical; EMERGENCY PHYSICIAN Emergency Medicine
DX: R51.9 Headache, unspecified (principal); E03.9 Hypothyroidism, unspecified; G91.9 Hydrocephalus, unspecified; Z90.49 Acquired absence of other specified parts of digestive tract
CPT/HCPCS: 99283; 86618; 93005

== ENCOUNTER → 2025-02-02 16:02 | Outpatient (REF) | payer BC, SELFPAY ==
[2025-02-02 13:31] LABS: ALT (SGPT) 18 U/L (0-50); AST (SGOT) 19 U/L (17-59); Albumin 4.4 g/dl (3.5-5.0); Alkaline Phosphatase 63 U/L (38-126); Blood Urea Nitrogen 14 mg/dl (9-20); Calcium 9.4 mg/dl (8.4-10.2); Carbon Dioxide 24 mmol/L (22-30); Chloride 105 mmol/L (98-107); Glucose 81 mg/dl (70-99); HDL Cholesterol 35 mg/dl; LDL Cholesterol, Calculated 114 mg/dl; Potassium 4.3 mmol/L (3.5-5.1); Sodium 139 mmol/L (135-145); Total Protein 7.4 g/dl (6.3-8.2); Very Low Density Lipoprotein 34 mg/dl (0-30); eGFR > 60.00
[2025-02-02 13:44] LABS: Microalb - Urine Creatinine 221.300 mg/dl
[2025-02-02 13:46] LABS: Free T3 4.20 pg/ml (2.77-5.27); Vitamin D, 25-OH*** 84.2 ng/mL (30-80)
[2025-02-02 13:48] LABS: Microalbumin, Random Urine 0.6 mg/dl (0.6-1.7)
[2025-02-02 13:59] LABS: TSH 1.98 uIU/ml (0.47-4.68)
[2025-02-05 07:22] LABS: Total T3 (Sendout) 127 ng/dL (80-200)
== END ==
LOC: RCS 16:02
PROVIDERS: ATTENDING PHYSICIAN Student in an Organized Health Care Education/Training Program; REFERRING PHYSICIAN Internal Medicine Endocrinology, Diabetes & Metabolism
DX: R42 Dizziness and giddiness (principal); R00.0 Tachycardia, unspecified; E55.9 Vitamin D deficiency, unspecified; R80.9 Proteinuria, unspecified; E03.9 Hypothyroidism, unspecified; R73.03 Prediabetes; E78.5 Hyperlipidemia, unspecified; R74.01 Elevation of levels of liver transaminase levels; R53.83 Other fatigue
CPT/HCPCS: 36415; 80053; 80061; 82043; 82306; 82570; 84439; 84443; 84480; 84481; 86376; 93306

== ENCOUNTER 2025-02-04 14:57 | Outpatient (RCR) | payer BC, SELFPAY | END 2025-02-04 23:59 | disposition home or self-care (01) | LOC: RPT 14:57 | PROVIDERS: ATTENDING PHYSICIAN Student in an Organized Health Care Education/Training Program | DX: R42 Dizziness and giddiness (principal); Z73.6 Limitation of activities due to disability | CPT/HCPCS: 97112; 97162 ==

== ENCOUNTER → 2025-02-11 07:11 | Outpatient (REF) | payer BC, SELFPAY ==
--- NOTE | 2025-02-13 18:43 | EEG.RPT ---
Electroencephalogram Report
Recording
Date of EE02/11/25
Type of EEG: Routine
Length of EEG recordin mins
Done with Video Recording: Yes
Patient Status: Outpatient
Recording Conditions: Awake, Drowsy and Asleep
Hyperventilation Performed: Yes
Photic Stimulation Performed: Yes
Report
Clinical History:�34 year old man with episodes of dizziness, falling, locking up several minutes.
Introduction: A routine bedside EEG was done using [employer] 10-20 electrode placement protocol.
Background: In the most alert state, the PDR is 8-9 Hz in frequency with normal amplitude. There is spontaneous variability and reactivity.�
Sleep: Stage I and II sleep is seen.�during stage II sleep there were multiple apnea episodes, the longest lasting 23 sec
Focal/epileptiform: There were no focal or epileptiform discharges. No clinical or electrographic seizures occurred during this recording.
Photic stimulation: resulted in normal driving response. There was no photo myogenic or photoparoxysmal response.�
Impression: Normal EEG. multiple apnea episodes up to 23 seconds during sleep, may clinically correlate with obstructive sleep apnea.
== END ==
LOC: EEG 07:11
PROVIDERS: ATTENDING PHYSICIAN Psychiatry & Neurology Neurology
DX: R41.82 Altered mental status, unspecified (principal)
CPT/HCPCS: 95816

== ENCOUNTER → 2025-04-20 08:10 | Outpatient (REF) | payer BC, SELFPAY ==
[2025-04-20 09:44] LABS: Hematocrit 43.6 % (39.0-52.0); Hemoglobin 15.5 g/dL (13.0-18.0); Mean Corp Hgb Conc. 35.6 g/dL (33.0-37.0); Mean Corpuscular Volume 88.6 fL (80.0-94.0); Nucleated Red Blood Cells % 0 % (-); Platelet Count 248 10^3/uL (130-400); Red Cell Dist. Width 12.0 % (11.5-14.5)
[2025-04-20 10:38] LABS: Glycohemoglobin (HgbA1c) 5.3 % (4.0-5.9)
[2025-04-20 11:24] LABS: ALT (SGPT) 17 U/L (0-50); AST (SGOT) 21 U/L (17-59); Albumin 4.0 g/dl (3.5-5.0); Alkaline Phosphatase 75 U/L (38-126); Blood Urea Nitrogen 14 mg/dl (9-20); Calcium 8.7 mg/dl (8.4-10.2); Carbon Dioxide 27 mmol/L (22-30); Chloride 101 mmol/L (98-107); Glucose 91 mg/dl (70-99); HDL Cholesterol 33 mg/dl; LDL Cholesterol, Calculated 97 mg/dl; Potassium 4.7 mmol/L (3.5-5.1); Sodium 138 mmol/L (135-145); Total Protein 6.9 g/dl (6.3-8.2); Very Low Density Lipoprotein 37 mg/dl (0-30); eGFR > 60.00
[2025-04-20 16:51] LABS: Free T3 4.17 pg/ml (2.77-5.27); Vitamin D, 25-OH*** 70.5 ng/mL (30-80)
[2025-04-20 17:04] LABS: TSH 1.63 uIU/ml (0.47-4.68)
== END ==
LOC: REG 08:10
PROVIDERS: ATTENDING PHYSICIAN Internal Medicine Endocrinology, Diabetes & Metabolism
DX: E03.9 Hypothyroidism, unspecified (principal); E55.9 Vitamin D deficiency, unspecified; R68.89 Other general symptoms and signs; R73.03 Prediabetes; E78.5 Hyperlipidemia, unspecified; E34.9 Endocrine disorder, unspecified; R74.01 Elevation of levels of liver transaminase levels; R53.83 Other fatigue
CPT/HCPCS: 36415; 80053; 80061; 82306; 82626; 82627; 83036; 84439; 84443; 84481; 85025; 86376